=== PATIENT | female | born 1965 | race Caucasian/White ===

== ENCOUNTER 2020-05-23 12:59 | Emergency (ER) | payer MEDICAID ==
[~2020-05-23] VITALS: Ht 177.8 cm; Wt 100.0 kg
[2020-05-23 13:12] VITALS: Ht 177.8 cm; Wt 100.0 kg
[2020-05-23] MEDS ORDERED: GLUCOPHAGE500 MG PO (13:14)
[2020-05-23] MEDS ORDERED: KLONOPIN1 MG PO (13:14)
[2020-05-23] MEDS ORDERED: ZOLOFT100 MG PO (13:14)
[2020-05-23] MEDS ORDERED: SYNTHROID300 MCG PO (13:14)
[2020-05-23 14:43] LABS: BASOPHILS 0.7 % (0-2); EOSINOPHILS 2.9 % (0-7); HEMATOCRIT 42.1 % (36.0-48.0); HEMOGLOBIN 14.1 g/dL (12-16); IMMATURE GRANULOCYTES 0.3 % (0-5); LYMPHOCYTE ABS# 2.77 10x3/uL (1.18-3.74); LYMPHOCYTES 38.4 % (15-50); MCH 32.1 pg (26.0-34.0); MCHC 33.5 g/dL (31.0-37.0); MCV 95.9 fL (80.0-100.0); MEAN PLATELET VOLUME 10.8 fL (7.4-10.4); MONOCYTES 8.2 % (2-11); NEUTROPHIL ABS# 3.57 10x3/uL (1.56-6.13); NEUTROPHILS 49.5 % (40-80); PLATELET COUNT 273 10x3/uL (130-400); RBC 4.39 10x6/uL (4.00-5.40); RDW 13.5 % (11.5-14.5); WBC 7.2 10x3/uL (4.8-10.8)
[2020-05-23 14:49] LABS: ANION GAP 11.1 mmol/L (8-16); CALCIUM 9.6 mg/dL (8.5-10.1); CARBON DIOXIDE 23.9 mmol/L (21.0-32.0); CREATININE - SERUM 1.3 mg/dL (0.6-1.3)
[2020-05-23 14:51] LABS: UDS - AMPHET NEGATIVE QUAL (NEGATIVE); UDS - BARB NEGATIVE QUAL (NEGATIVE); UDS - BENZO POSITIVE QUAL (NEGATIVE); UDS - COCAINE NEGATIVE QUAL (NEGATIVE); UDS - OPIATE NEGATIVE QUAL (NEGATIVE); UDS - PCP NEGATIVE QUAL (NEGATIVE); UDS - THC NEGATIVE QUAL (NEGATIVE)
[2020-05-23 14:55] LABS: BILIRUBIN - TOTAL 0.34 mg/dL (0.2-1.3); PROTEIN - SERUM 7.2 g/dL (6.4-8.2)
--- NOTE | 2020-05-23 15:15 | NUR ---
DR. WHITE NOTIFIED AND SITTER ORDERED. SITTER AT BEDSIDE. NOTIFIED CHARGE NURSE AND ATTENDING IN REGARDS TO ASSESSMENT FINDINGS. RESOURCES GIVEN TO PT. PT REFUSED SAFETY PLAN X 3 AT THIS TIME.
[2020-05-23 15:50] LABS: BILIRUBIN NEGATIVE (NEGATIVE); KETONE NEGATIVE (NEGATIVE); NITRITE NEGATIVE (NEGATIVE); UROBILINOGEN NORMAL mg/dL (< 2)
[2020-05-23 16:01] LABS: SARS-CoV-2 ANTIGEN NEGATIVE- SARS-COV-2 (NEGATIVE)
[2020-05-23 18:46] VITALS: BP 110/73
== END 2020-05-23 18:46 ==
LOC: D.ER 12:59
PROVIDERS: Family Medicine
DX: R45.851 Suicidal ideations (principal); M54.9 Dorsalgia, unspecified; F32.9 Major depressive disorder, single episode, unspecified; E11.9 Type 2 diabetes mellitus without complications; Z79.84 Long term (current) use of oral hypoglycemic drugs

== ENCOUNTER 2020-06-22 11:31 | Emergency (ER) | payer MEDICAID ==
[~2020-06-22] VITALS: Ht 177.8 cm; Wt 97.7 kg
[~2020-06-22 11:31] MED LIST: GLUCOPHAGE500 MG PO; KLONOPIN1 MG PO; SYNTHROID300 MCG PO; ZOLOFT100 MG PO
[2020-06-22 11:39] VITALS: BP 114/65; Ht 177.8 cm; Wt 97.7 kg
== END 2020-06-22 13:55 | disposition home or self-care (01) ==
LOC: D.ER 11:31
DX: S10.93XA Contusion of unspecified part of neck, initial encounter (principal); W01.10XA Fall on same level from slipping, tripping and stumbling with subsequent striking against unspecified object, initial encounter; Y93.9 Activity, unspecified; Y92.9 Unspecified place or not applicable; M54.2 Cervicalgia; E11.9 Type 2 diabetes mellitus without complications; Z79.84 Long term (current) use of oral hypoglycemic drugs